=== PATIENT | male | born 1965 | race Two or more races ===

== ENCOUNTER 2016-09-17 08:27 | Emergency (ER) | payer SELFPAY ==
[~2016-09-17] VITALS: Ht 170.2 cm; Wt 91.2 kg
[~2016-09-17 08:27] MED LIST: ALPRAZOLAM1 MG ORAL
[2016-09-17 08:56] VITALS: BP 145/75
[2016-09-17] MEDS ORDERED: Ipratropium 0.02% Inh Soln 2.5ml UD HHN ONE (09:15)
[2016-09-17] MEDS ORDERED: PredniSONE 20mg tab ORAL ONE (09:15)
[2016-09-17] MEDS ORDERED: Albuterol ud Inhalation HHN ONE (09:15)
[2016-09-17] MEDS ORDERED: ALBUTEROL SULF8.5 GM INH (10:40)
[2016-09-17] MEDS ORDERED: IBUPROFEN600 MG ORAL (10:40)
[2016-09-17] MEDS ORDERED: ASPIRIN EC81 MG ORAL (10:40)
[2016-09-17] MEDS ORDERED: HYDROCHLOROTHIA25 MG ORAL (10:40)
[2016-09-17] MEDS ORDERED: ZOCOR20 M1 ORAL (10:40)
[2016-09-17] MEDS ORDERED: AMOXICILLIN500 MG ORAL (10:40)
[2016-09-17] MEDS ORDERED: PREDNISONE20 MG ORAL (10:40)
[2016-09-17 11:06] VITALS: BP 124/69
[2016-09-17 11:07] VITALS: BP 124/69
--- NOTE | 2016-09-17 12:13 | Diagnostic Imaging Report ---
Indications: Right knee pain Technique: Three views of the right knee Comparison: None Findings: No acute fractures. No dislocations. Joint spaces are preserved. No radiopaque foreign body. Normal mineralization. Impression: No acute process
--- NOTE | 2016-09-17 16:17 | Diagnostic Imaging Report ---
Indication: COUGH Technique: One view of the chest Comparison: 03/18/2011 Findings: Less optimal inspiration currently. No definite acute infiltrates, effusions, or congestion. The heart is upper limits normal in size Impression: No acute process
--- NOTE | 2016-09-18 14:19 | Emergency Room Report ---
History of Present Illness General Chief Complaint: Upper Respiratory Illness Source: Patient Present Illness HPI 50-year-old male presents to ED for evaluation. States the last 2 days he's had a cough with fever. States cough is productive. Denies chest pain. Denies history of smoking or asthma. Patient also states since last week he had a mechanical fall in the bathroom and landed on his right knee. Complaining of right knee pain. Night at 10, throbbing, nonradiating. Denies any other injuries. She bear weight. No other aggravating or relieving factors. Denies any other symptoms Allergies: Coded Allergies: No Known Allergies (Unverified , 10/07/12) Patient History Past Medical History: DM, HTN Past Surgical History: none Pertinent Family History: none Social History: Denies: alcohol use, drug use, smoking Immunizations: UTD Reviewed Nursing Documentation: PMH: Agreed, PSxH: Agreed Nursing Documentation-PMH Past Medical History: No History, Except For Hx Cardiac Problems: Yes - high cholesterol Hx Hypertension: Yes Hx Diabetes: Yes Review of Systems All Other Systems: negative except mentioned in HPI Physical Exam Vital Signs Date Time Temp Pulse Resp B/P Pulse Ox O2 Delivery O2 Flow Rate FiO2 09/17/16 08:44 99.7 97 18 148/87 98 Room Air Sp02 EP Interpretation: reviewed, normal General Appearance: no apparent distress, alert, GCS 15, non-toxic Head: normocephalic Eyes: bilateral eye PERRL, bilateral eye normal inspection ENT: normal ENT inspection Neck: normal inspection Respiratory: chest non-tender, lungs clear, normal breath sounds, speaking full sentences Cardiovascular #1: regular rate, rhythm, no edema Gastrointestinal: normal inspection Rectal: deferred Genitourinary: no CVA tenderness Musculoskeletal: tender - R knee Neurologic: alert, oriented x3, responsive, motor strength/tone normal, sensory intact, speech normal Psychiatric: normal inspection Skin: normal inspection Lymphatic: normal inspection Procedures Splinting Splinting : Consent: Verbal Pre-Made Type: JUAN wrap - R knee Pre-Proc Neuro Vasc Exam: normal Post-Proc Neuro Vasc Exam: normal Patient Tolerated: Well Complications: None Medical Decision Making Diagnostic Impression: Primary Impression: Atypical pneumonia Additional Impression: Knee contusion Qualified Codes: S80.01XA - Contusion of right knee, initial encounter ER Course Hospital Course 50-year-old male presents to ED complaining of cough, fever. also c/o R knee pain Differential diagnoses include: URI, bronchitis, asthma/COPD, pneumonia Clinical course Patient placed on stretcher. After initial history and physical I ordered nebulizer treatment, CXR, R knee Xray, pain meds CXR unremarkable R knee xray unremarkable Upon reassessment patient states cough and symptoms have improved. We will treat as a typical pneumonia Juan wrap applied to the right knee Diagnosis - atypical pneumonia, R knee contusion Stable and discharged home with prescriptions for Rx motrin, prednisone, albuterol. Instructed to followup with PMD. Return to ED if symptoms recur or worsen Chest X-Ray Diagnostic Results Chest X-Ray Diagnostic Results : Chest X-Ray Ordered: Yes # of Views/Limited/Complete: 1 View Indication: Other - cough EP Interpretation: Yes Interpretation: no consolidation, no effusion, no pneumothorax, no acute cardiopulmonary disease Impression: No acute disease Interpreting ER Provider: Electronically signed by Marjorie Frausto MD Other X-Ray Diagnostic Results Other X-Ray Diagnostic Results : X-Ray ordered: Right knee # of Views/Limited Vs Complete: 3 View Indication: Pain EP Interpretation: Yes Interpretation: no dislocation, no soft tissue swelling, no fractures Impression: No acute disease Interpreting ER Provider: Electronically signed by Marjorie Frausto MD Last Vital Signs Date Time Temp Pulse Resp B/P Pulse Ox O2 Delivery O2 Flow Rate FiO2 09/17/16 11:07 99.7 94 18 124/69 98 Room Air Status: improved Disposition: HOME, SELF-CARE Condition: Stable Scripts Albuterol Sulfate* (ALBUTEROL SULFATE MDI*) 8.5 Gm Hfa.aer.ad 2 PUFF INH Q4H Y for cough/wheezing, #1 EA 0 Refills Prov: MARJORIE FRAUSTO M.D. 09/17/16 Prednisone* (PREDNISONE*) 20 Mg Tablet 40 MG ORAL DAILY, #10 TAB Prov: MARJORIE FRAUSTO M.D. 09/17/16 Amoxicillin* (AMOXIL*) 500 Mg Capsule 500 MG ORAL THREE TIMES A DAY, #21 CAP Prov: MARJORIE FRAUSTO M.D. 09/17/16 Ibuprofen* (MOTRIN*) 600 Mg Tablet 600 MG ORAL Q8H Y for For Pain, #30 TAB 0 Refills Prov: MARJORIE FRAUSTO M.D. 09/17/16 Hydrochlorothiazide* (HYDROCHLOROTHIAZIDE*) 25 Mg Tablet 25 MG ORAL DAILY, #30 TAB Prov: MARJORIE FRAUSTO M.D. 09/17/16 Simvastatin (ZOCOR) 20 Mg Tablet 20 MG ORAL BEDTIME, #30 TAB Prov: MARJORIE FRAUSTO M.D. 09/17/16 Aspirin Ec* (ASPIRIN EC*) 81 Mg Tablet. 81 MG ORAL DAILY, #30 TAB Prov: MARJORIE FRAUSTO M.D. 09/17/16 Patient Instructions: Community-Acquired Pneumonia, Adult, [facility] MARJORIE FRAUSTO M.D. Sep 18, 2016 14:19
== END 2016-09-17 11:23 | disposition home or self-care (01) ==
LOC: EMR 08:56
DX: J18.9 Pneumonia, unspecified organism (principal); S80.01XA Contusion of right knee, initial encounter; W19.XXXA Unspecified fall, initial encounter; Y92.012 Bathroom of single-family (private) house as the place of occurrence of the external cause; I10 Essential (primary) hypertension; E11.9 Type 2 diabetes mellitus without complications
CPT/HCPCS: 71010; 94640; 99284

== ENCOUNTER 2019-10-24 08:04 | Emergency (ER) | payer OTHER ==
[~2019-10-24] VITALS: Ht 170.2 cm; Wt 83.5 kg
[~2019-10-24 08:04] MED LIST changes: +ALBUTEROL SULF8.5 GM INH; +AMITRIPTYLINE H25 MG ORAL; +AMLODIPINE BESYL5 MG ORAL; +AMOXICILLIN500 MG ORAL; +ASPIRIN EC325 MG ORAL; +ASPIRIN EC81 MG ORAL; +ATORVASTATIN CA20 MG ORAL; +CIPROFLOXACIN500 M2 ORAL; +DAILY VITE1 EACH ORAL; +FLOMAX0.4 MG ORAL; +HYDROCHLOROTHIA25 MG ORAL; +IBUPROFEN600 MG ORAL; +KEFLEX250 MG ORAL; +LISINOPRIL40 MG ORAL; +MELATONIN 3 MG1 EAC1 PO; +METFORMIN HCL500 M1 ORAL; +MINIPRESS1 MG PO; +PRAZOSIN HCL2 MG PO; +PREDNISONE20 MG ORAL; +PROAIR HFA8.5 GM INH; +PROMETHAZINE-C118 M1 ORAL; +PROPRANOLOL HCL10 MG ORAL; +PROPRANOLOL HCL40 MG ORAL; +SEROQUEL100 MG ORAL; +TERAZOSIN HCL5 MG PO; +TYLENOL EXTRA500 MG ORAL; +ZOCOR20 M1 ORAL
[2019-10-24 08:37] VITALS: BP 114/73
--- NOTE | 2019-10-24 08:58 | Emergency Room Report ---
History of Present Illness General Chief Complaint: Male Urogenital Problems Source: Patient Present Illness HPI Disclaimer: Please note that this report is being documented using [employer] technology. This can lead to erroneous entry secondary to incorrect interpretation by the dictating instrument. HPI: 53-year-old male history of hypertension and BPH presented for Mcmillan catheter dysfunction. Patient had a Mcmillan catheter placed 2 weeks ago here for urinary retention. He states it stopped draining last night. Complained of mild suprapubic discomfort. Denies any fevers nausea or vomiting. He completed a course of p.o. antibiotics. He does have follow-up with his primary doctor in 2 days. 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 Nursing Documentation-PMH Past Medical History: No History, Except For Hx Hypertension: Yes Hx Asthma: Yes Hx Diabetes: Yes Review of Systems All Other Systems: negative except mentioned in HPI Physical Exam Vital Signs Date Time Temp Pulse Resp B/P (MAP) Pulse Ox O2 Delivery O2 Flow Rate FiO2 10/24/19 08:12 97.2 79 17 114/73 (87) 100 Room Air Sp02 EP Interpretation: reviewed, normal General Appearance: well appearing, no apparent distress Head: normocephalic, atraumatic Eyes: bilateral eye PERRL, bilateral eye EOMI ENT: hearing grossly normal, moist mucus membranes Neck: full range of motion, supple Respiratory: lungs clear, normal breath sounds, no rhonchi, no respiratory distress, no retraction, no wheezing Cardiovascular #1: normal peripheral pulses, regular rate, rhythm, no murmur Gastrointestinal: non tender, soft, non-distended, no guarding Neurologic: alert, oriented x3, no focal defects Skin: normal color, warm/dry Medical Decision Making Diagnostic Impression: Primary Impression: UTI (urinary tract infection) Additional Impression: Encounter for Mcmillan catheter removal ER Course MDM: Differential included but not limited to Mcmillan catheter obstruction, did consider UTI, patient does not appear septic Clinical course-patient plan to follow-up with her primary doctor in 2 days for Mcmillan catheter removal and voiding trial however currently his Mcmillan catheter appears obstructed. Will remove I discussed placing a new Mcmillan catheter versus a voiding trial now and he wished to trial a voiding trial. So voiding trial was successful in the ER. Urinalysis was sent and still showed 30-50 WBCs with 3+ leukocyte Estrace I will place patient back on Macrobid p.o. He does have follow-up with his PMD in 2 days. Otherwise nontoxic no acute distress stable for discharge. Labs - Laboratory Tests Test 10/24/19 09:27 Urine Color Pale yellow Urine Appearance Slightly cloudy Urine pH 5 (4.5-8.0) Urine Specific [place] 1.015 (1.005-1.035) Urine Protein 2+ (NEGATIVE) H Urine Glucose (UA) Negative (NEGATIVE) Urine Ketones Negative (NEGATIVE) Urine Blood 5+ (NEGATIVE) H Urine Nitrite Positive (NEGATIVE) H Urine Bilirubin Negative (NEGATIVE) Urine Urobilinogen Normal MG/DL (0.0-1.0) Urine Leukocyte Esterase 3+ (NEGATIVE) H Urine RBC 5-10 /HPF (0 - 0) H Urine WBC 20-30 /HPF (0 - 0) H Urine Squamous Epithelial Cells Few /LPF (NONE/OCC) Urine Bacteria Many /HPF (NONE) H Last Vital Signs Date Time Temp Pulse Resp B/P (MAP) Pulse Ox O2 Delivery O2 Flow Rate FiO2 10/24/19 08:37 97.2 17 114/73 100 Room Air 10/24/19 08:12 79 Disposition: HOME, SELF-CARE Condition: Improved Scripts Nitrofurantoin Monohyd/M-Cryst* (MACROBID 100 MG*) 100 Mg Capsule 100 MG ORAL EVERY 12 HOURS, #14 CAP Prov: Brendon Ruby M.D. 10/24/19 Referrals: [facility],REFERRING (PCP) Brendon Ruby M.D. Oct 24, 2019 08:58
[2019-10-24 10:26] LABS: APPEARANCE,URINE SLIGHTLY CLOUDY; BILIRUBIN, URINE NEGATIVE (NEGATIVE); COLOR,URINE PALE YELLOW; GLUCOSE, URINE (UA) NEGATIVE (NEGATIVE); KETONES,URINE NEGATIVE (NEGATIVE); LEUKOCYTE ESTERASE ,URINE 3+ (NEGATIVE); NITRITE,URINE POSITIVE (NEGATIVE); PH,URINE 5 (4.5-8.0); PROTEIN,URINE 2+ (NEGATIVE); UROBILINOGEN,URINE NORMAL MG/DL (0.0-1.0)
[2019-10-24] MEDS ORDERED: NITROFURANTOIN100 M2 ORAL (10:46)
[2019-10-24 10:55] VITALS: BP 116/76
== END 2019-10-24 10:55 | disposition home or self-care (01) ==
LOC: EMR 08:29
DX: Z46.6 Encounter for fitting and adjustment of urinary device (principal); N39.0 Urinary tract infection, site not specified; E11.9 Type 2 diabetes mellitus without complications; I10 Essential (primary) hypertension
CPT/HCPCS: 81003; 87086; Z7502; 99283

== ENCOUNTER 2019-11-24 18:29 | Emergency (ER) | payer OTHER ==
[~2019-11-24] VITALS: Ht 170.2 cm; Wt 81.6 kg
[~2019-11-24 18:29] MED LIST changes: +NITROFURANTOIN100 M2 ORAL
[2019-11-24 19:00] VITALS: BP 138/82
[2019-11-24] MEDS ORDERED: Lidocaine 2% Visc 15ml soln ORAL ONE (19:00)
[2019-11-24] MEDS ORDERED: Mylanta II UD 30ml ORAL ONE (19:00)
--- NOTE | 2019-11-24 19:00 | NUR ---
ED Nurse Note: Pt walked into ED for epigastric pain 8/10 for 2 days. Pt is alert and orientedx4, ambulatory. Pt set up on monitor. Pt has been seen by ERMAudie. Pt has no nausea or vomiting.
--- NOTE | 2019-11-24 19:10 | Emergency Room Report ---
History of Present Illness General Chief Complaint: Abdominal Pain Source: Medical Record Present Illness HPI 53 YO male presents to the emergency department complaining of 10 out of 10 severity intermittent burning abdominal and throat pain x3 days which occurs only after eating or drinking. Patient reports moderate daily use of Celecoxib and IBU. He denies caffeine intake or smoking. He denies abdominal tenderness. He denies blood in the stool or black tarry stools. He reports that his pain is primarily on the right side and it radiates upward from the epigastric region. He denies shortness of breath, palpitations, dizziness or diaphoresis. He denies fevers, chills, nausea, vomiting, constipation or diarrhea. He reports hx of anxiety, BPH, asthma, DM, and HTN.. He denies recent travel or ill contacts or household members with similar symptoms. 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 Patient History Past Medical History: see triage record, psych hx - anxiety, other - chronic pain Past Surgical History: none Pertinent Family History: none Reviewed Nursing Documentation: PMH: Agreed; PSxH: Agreed Nursing Documentation-PMH Past Medical History: No History, Except For Hx Hypertension: Yes Hx Asthma: Yes Hx Diabetes: Yes Review of Systems All Other Systems: negative except mentioned in HPI Physical Exam Vital Signs Date Time Temp Pulse Resp B/P (MAP) Pulse Ox O2 Delivery O2 Flow Rate FiO2 11/24/19 18:40 98.1 72 18 133/84 (100) 96 Room Air Sp02 EP Interpretation: reviewed, normal General Appearance: no apparent distress, alert, GCS 15, non-toxic Head: normocephalic, atraumatic Eyes: bilateral eye normal inspection, bilateral eye PERRL ENT: hearing grossly normal, normal pharynx, normal voice Neck: full range of motion Respiratory: chest non-tender, lungs clear, normal breath sounds, no respiratory distress, no accessory muscle use, no wheezing, speaking full sentences Cardiovascular #1: regular rate, rhythm, no edema Gastrointestinal: normal bowel sounds, non tender, soft, non-distended, no guarding Rectal: deferred Musculoskeletal: back normal, normal range of motion, gait/station normal, non- tender Neurologic: alert, motor strength/tone normal, oriented x3, sensory intact, responsive, speech normal Psychiatric: judgement/insight normal Skin: normal color Medical Decision Making PA Attestation Dr. Page is my supervising Physician whom patient management has been discussed with. Diagnostic Impression: Primary Impression: Gastritis due to nonsteroidal anti-inflammatory drug (NSAID) Additional Impression: Acid reflux Qualified Codes: K21.00 - Gastro-esophageal reflux disease with esophagitis, without bleeding ER Course 53 YO male presents to the emergency department complaining of 10 out of 10 severity intermittent burning abdominal and throat pain x3 days which occurs only after eating or drinking. Patient reports moderate daily use of Celecoxib and IBU. He denies caffeine intake or smoking. He denies abdominal tenderness. He denies blood in the stool or black tarry stools. He reports that his pain is primarily on the right side and it radiates upward from the epigastric region. He denies shortness of breath, palpitations, dizziness or diaphoresis. He denies fevers, chills, nausea, vomiting, constipation or diarrhea. He reports hx of anxiety, BPH, asthma, DM, and HTN.. He denies recent travel or ill contacts or household members with similar symptoms. Ddx considered but are not limited to Diverticulitis, acute appendicitis, diarrhea,UC, PUD, GE, pancreatitis, gallstone, or cardiac etiology just to name a few. Vital signs: are WNL, pt. is afebrile H&PE are most consistent with NSAID induced Gastritis. ORDERS: -CBC, CMP, lipase: WNL -EKG: unremarkable - ED INTERVENTIONS: - Pepcid PO 20mg -Mylanta PO -Viscous Lidocaine 2% PO Reviewed normal laboratory values with patient. Discussed with patient that I believe his symptoms are secondary to excessive use of NSAIDs. Patient reports he is feeling much better after above interventions. -I do not identify an emergent condition at this time. With current presentation, pt. is stable for close outpatient follow up and conservative treatment. D/w pt. to return promptly to ED with worsening or new symptoms.- Pt. verbalizes' understanding and agreement with proposed treatment plan. DISCHARGE: At this time pt. is stable for d/c to home. Will provide printed patient care instructions, and any necessary prescriptions. Care plan and follow up instructions have been discussed with the patient prior to discharge. Labs Test 11/24/19 19:00 White Blood Count 10.2 K/UL (4.8-10.8) Red Blood Count 4.52 M/UL (4.70-6.10) Hemoglobin 14.5 G/DL (14.2-18.0) Hematocrit 42.0 % (42.0-52.0) Mean Corpuscular Volume 93 FL (80-99) Mean Corpuscular Hemoglobin 32.0 PG (27.0-31.0) Mean Corpuscular Hemoglobin Concent 34.5 G/DL (32.0-36.0) Red Cell Distribution Width 12.8 % (11.6-14.8) Platelet Count 188 K/UL (150-450) Mean Platelet Volume 9.1 FL (6.5-10.1) Neutrophils (%) (Auto) 66.8 % (45.0-75.0) Lymphocytes (%) (Auto) 25.1 % (20.0-45.0) Monocytes (%) (Auto) 6.6 % (1.0-10.0) Eosinophils (%) (Auto) 0.9 % (0.0-3.0) Basophils (%) (Auto) 0.6 % (0.0-2.0) Sodium Level 136 MMOL/L (136-145) Potassium Level 4.0 MMOL/L (3.5-5.1) Chloride Level 104 MMOL/L (98-107) Carbon Dioxide Level 23 MMOL/L (21-32) Blood Urea Nitrogen 14 mg/dL (7-18) Creatinine 1.2 MG/DL (0.55-1.30) Estimat Glomerular Filtration Rate > 60 mL/min (>60) Glucose Level 114 MG/DL (74-106) Calcium Level 9.0 MG/DL (8.5-10.1) Total Bilirubin 0.4 MG/DL (0.2-1.0) Aspartate Amino Transf (AST/SGOT) 23 U/L (15-37) Alanine Aminotransferase (ALT/SGPT) 32 U/L (12-78) Alkaline Phosphatase 94 U/L (46-116) Total Protein 7.2 G/DL (6.4-8.2) Albumin 4.2 G/DL (3.4-5.0) Globulin 3.0 g/dL Albumin/Globulin Ratio 1.4 (1.0-2.7) Lipase 160 U/L (73-393) EKG Diagnostic Results Rate: normal - 67 BPM Rhythm: NSR ST Segments: no acute changes ASA given to the pt in ED: No PA Scribe Text This Interpretation was scribed by DENISE Evans. Last Vital Signs Date Time Temp Pulse Resp B/P (MAP) Pulse Ox O2 Delivery O2 Flow Rate FiO2 11/24/19 18:40 98.1 72 18 133/84 (100) 96 Room Air Status: improved Disposition: HOME, SELF-CARE Condition: Stable Patient Instructions: Food Choices for Gastroesophageal Reflux Disease, Adult, Gastritis, Adult, Gastroesophageal Reflux Disease, Adult Additional Instructions: Discontinue excessive use of ibuprofen and celecoxib Take medications as directed. Follow up with a Primary Care Provider in 3-5 days, even if your symptoms have resolved. --Please review list of primary care clinics, if you do not already have a primary care provider Return sooner to ED if new symptoms occur, or current symptoms become worse. - Please note that this Emergency Department Report was dictated using [place] [employer]traffic expert technology software, occasionally this can lead to erroneous entry secondary to interpretation by the dictation equipment. Chelle Evans Nov 24, 2019 19:10
--- NOTE | 2019-11-24 19:30 | NUR ---
ED Nurse Note: received patient from sonal dejesus. patient resting in bed with no acute distress. vitals stable to baseline. discussed plan of care with patient; states willingness to continue with care.
[2019-11-24 19:32] LABS: BASOPHILS % (AUTO) 0.6 % (0.0-2.0); EOSINOPHILS % (AUTO) 0.9 % (0.0-3.0); HEMOGLOBIN 14.5 G/DL (14.2-18.0); LYMPHOCYTES % (AUTO) 25.1 % (20.0-45.0); MEAN CORPUSCULAR VOLUME 93 FL (80-99); MONOCYTES % (AUTO) 6.6 % (1.0-10.0); NEUTROPHILS % (AUTO) 66.8 % (45.0-75.0); PLATELET COUNT 188 K/UL (150-450); RED BLOOD COUNT 4.52 M/UL (4.70-6.10); RED CELL DISTRIBUTION WIDTH 12.8 % (11.6-14.8); WHITE BLOOD COUNT 10.2 K/UL (4.8-10.8)
[2019-11-24 19:39] LABS: ALANINE AMINOTRANSFERASE 32 U/L (12-78); ALBUMIN 4.2 G/DL (3.4-5.0); ALBUMIN/GLOBULIN RATIO 1.4 (1.0-2.7); ALKALINE PHOSPHATASE 94 U/L (46-116); ASPARTATE AMINO TRANSFERASE 23 U/L (15-37); BILIRUBIN,TOTAL 0.4 MG/DL (0.2-1.0); BLOOD UREA NITROGEN 14 mg/dL (7-18); CARBON DIOXIDE 23 MMOL/L (21-32); CHLORIDE 104 MMOL/L (98-107); CREATININE 1.2 MG/DL (0.55-1.30); SODIUM 136 MMOL/L (136-145)
[2019-11-24] MEDS ORDERED: FAMOTIDINE20 MG ORAL (20:03)
[2019-11-24] MEDS ORDERED: LIDOCAINE VISC100 ML ORAL (20:03)
[2019-11-24 20:18] VITALS: BP 129/81
--- NOTE | 2019-11-24 20:18 | NUR ---
ER DISCHARGE NOTE: Patient is cleared to be discharged per ERMD, pt is aox4, on room air, with stable vital signs. pt was given dc and prescription instructions, pt was able to verbalize understanding, pt id band and iv site removed without complications. pt is able to ambulate with steady gait. pt took all belongings.
== END 2019-11-24 20:18 | disposition home or self-care (01) ==
LOC: EMR 18:55
DX: K29.70 Gastritis, unspecified, without bleeding (principal); T39.395A Adverse effect of other nonsteroidal anti-inflammatory drugs [NSAID], initial encounter; Y92.9 Unspecified place or not applicable; K21.00 Gastro-esophageal reflux disease with esophagitis, without bleeding; E11.9 Type 2 diabetes mellitus without complications; I10 Essential (primary) hypertension; F41.9 Anxiety disorder, unspecified
CPT/HCPCS: 36415; 80053; 83690; 85025; Z7502; 99283

== ENCOUNTER 2019-12-26 15:09 | Inpatient (IN) | payer OTHER ==
[~2019-12-26] VITALS: Ht 170.2 cm; Wt 77.1 kg
[~2019-12-26 15:09] MED LIST changes: +FAMOTIDINE20 MG ORAL; +LIDOCAINE VISC100 ML ORAL
--- NOTE | 2019-12-26 15:37 | Emergency Room Report ---
History of Present Illness General Chief Complaint: Vomiting Source: Patient Present Illness HPI Patient is a 54-year-old male past medical history of anxiety, diabetes and hypertension who presents to the ER complaining of abdominal pain, nausea and vomiting for 2 days. Patient complains of epigastric pain. He denies any fever or chills. He denies any bilious or bloody vomitus. He denies any chest pain o r shortness of breath. He denies any dysuria or hematuria. He denies any diarrhea. She denies any sick contacts and states that he lives alone. 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: No Patient History Social History: Denies: smoking, alcohol use, drug use Reviewed Nursing Documentation: PMH: Agreed; PSxH: Agreed Nursing Documentation-PMH Hx Hypertension: Yes Hx Asthma: Yes Hx Diabetes: Yes Review of Systems All Other Systems: negative except mentioned in HPI Physical Exam Vital Signs Date Time Temp Pulse Resp B/P (MAP) Pulse Ox O2 Delivery O2 Flow Rate FiO2 12/26/19 15:17 98.2 64 20 143/79 (100) 96 Room Air Sp02 EP Interpretation: reviewed, normal General Appearance: no apparent distress, alert, GCS 15, non-toxic Head: normocephalic, atraumatic Eyes: bilateral eye normal inspection, bilateral eye PERRL Neck: full range of motion, supple/symm/no masses Respiratory: chest non-tender, lungs clear, normal breath sounds, speaking full sentences Cardiovascular #1: regular rate, rhythm, no edema Gastrointestinal: other - Mild epigastric tenderness to palpation with no guarding or rebound Rectal: deferred Musculoskeletal: normal range of motion, no calf tenderness, no lower extremity edema Neurologic: analysis mgr III-XII nml as tested, oriented x3 Psychiatric: no suicidal/homicidal ideation Skin: no rash Lymphatic: no adenopathy Medical Decision Making Diagnostic Impression: Primary Impression: Pyelonephritis Additional Impression: Nausea & vomiting ER Course Patient has been pancultured. Patient's UA is positive. Patient started on Levaquin. Patient given IV fluids. Patient's lactate is normal. Patient CT demonstrates bilateral perinephric stranding. Patient will be admitted for further treatment and evaluation. Laboratory Tests Test 12/26/19 15:30 12/26/19 17:20 White Blood Count 10.5 K/UL (4.8-10.8) Red Blood Count 4.86 M/UL (4.70-6.10) Hemoglobin 15.4 G/DL (14.2-18.0) Hematocrit 44.8 % (42.0-52.0) Mean Corpuscular Volume 92 FL (80-99) Mean Corpuscular Hemoglobin 31.7 PG (27.0-31.0) H Mean Corpuscular Hemoglobin Concent 34.3 G/DL (32.0-36.0) Red Cell Distribution Width 12.3 % (11.6-14.8) Platelet Count 193 K/UL (150-450) Mean Platelet Volume 10.3 FL (6.5-10.1) H Neutrophils (%) (Auto) 79.7 % (45.0-75.0) H Lymphocytes (%) (Auto) 15.5 % (20.0-45.0) L Monocytes (%) (Auto) 4.3 % (1.0-10.0) Eosinophils (%) (Auto) 0.1 % (0.0-3.0) Basophils (%) (Auto) 0.4 % (0.0-2.0) Prothrombin Time 11.5 SEC (9.30-11.50) Prothrombin Time INR 1.0 (0.9-1.1) Activated Partial Thromboplast Time 27 SEC (23-33) Urine Color Yellow Urine Appearance Slightly cloudy Urine pH 6 (4.5-8.0) Urine Specific [place] 1.015 (1.005-1.035) Urine Protein 2+ (NEGATIVE) H Urine Glucose (UA) Negative (NEGATIVE) Urine Ketones 3+ (NEGATIVE) H Urine Blood Negative (NEGATIVE) Urine Nitrite Negative (NEGATIVE) Urine Bilirubin Negative (NEGATIVE) Urine Urobilinogen 1 MG/DL (0.0-1.0) H Urine Leukocyte Esterase 1+ (NEGATIVE) H Urine RBC 0-2 /HPF (0 - 0) H Urine WBC 10-15 /HPF (0 - 0) H Urine Squamous Epithelial Cells Occasional /LPF Urine Bacteria Many /HPF (NONE) H Urine Mucus Few /LPF (NONE/OCC) H Sodium Level 134 MMOL/L (136-145) L Potassium Level 4.3 MMOL/L (3.5-5.1) Chloride Level 98 MMOL/L (98-107) Carbon Dioxide Level 29 MMOL/L (21-32) Anion Gap 7 mmol/L (5-15) Blood Urea Nitrogen 11 mg/dL (7-18) Creatinine 0.9 MG/DL (0.55-1.30) Estimated Glomerular Filtration Rate > 60 mL/min (>60) Glucose Level 160 MG/DL (74-106) H Calcium Level 8.8 MG/DL (8.5-10.1) Magnesium Level 1.8 MG/DL (1.8-2.4) Total Bilirubin 0.5 MG/DL (0.2-1.0) Aspartate Amino Transferase (AST) 18 U/L (15-37) Alanine Aminotransferase (ALT) 32 U/L (12-78) Alkaline Phosphatase 87 U/L (46-116) Troponin I 0.000 ng/mL (0.000-0.056) Total Protein 7.9 G/DL (6.4-8.2) Albumin 4.2 G/DL (3.4-5.0) Globulin 3.7 g/dL Albumin/Globulin Ratio 1.1 (1.0-2.7) Lipase 167 U/L (73-393) Urine Opiates Screen Negative (NEGATIVE) Urine Barbiturates Screen Negative (NEGATIVE) Phencyclidine (PCP) Screen Negative (NEGATIVE) Urine Amphetamines Screen Negative (NEGATIVE) Urine Benzodiazepines Screen Negative (NEGATIVE) Urine Cocaine Screen Negative (NEGATIVE) Urine Marijuana (THC) Screen Negative (NEGATIVE) Lactic Acid Level 0.80 mmol/L (0.4-2.0) EKG Diagnostic Results Troponin ordered: Yes When was troponin ordered?: Dec 26, 2019 EKG Time: 16:18 EP Interpretation: Jocy Ochoa MD Rate: bradycardiac - 53 bpm Rhythm: other - Sinus bradycardia ST Segments: no acute changes ASA given to the pt in ED: No Rhythm Strip Diag. Results Rhythm Strip Time: 16:28 EP Interpretation: yes - Jocy Ochoa MD Rate: 55 bpm Rhythm: no PVC's, no ectopy, other - Sinus bradycardia Chest X-Ray Diagnostic Results Chest X-Ray Diagnostic Results : Chest X-Ray Ordered: Yes # of Views/Limited/Complete: 1 View Indication: Other - Abdominal pain EP Interpretation: Yes Interpretation: no consolidation, no effusion, no pneumothorax, no acute cardiopulmonary disease Impression: No acute disease Electronically Signed by: Jocy Ochoa MD Last Vital Signs Date Time Temp Pulse Resp B/P (MAP) Pulse Ox O2 Delivery O2 Flow Rate FiO2 12/26/19 15:17 98.2 64 20 143/79 (100) 96 Room Air Disposition: ADMITTED INPATIENT - MS Condition: Critical Physician Consult: Dr. Angulo at 1830 Additional Instructions: The patient was provided with discharge instructions, notified to follow-up with a primary care doctor and or specialist in the next 24-48 hours, and to return to the ED if they have worsening of their symptoms. Please note that this report is being documented using [employer] technology. This can lead to erroneous entry secondary to incorrect interpretation by the dictating instrument. Jocy Ochoa M.D. Dec 26, 2019 15:37
[2019-12-26 15:45] VITALS: BP 143/79
[2019-12-26] MEDS ORDERED: fentaNYL 100 mcg/2 mL IV ONE ×2 (15:45→17:15)
[2019-12-26] MEDS ORDERED: Pantoprazole Inj IVP ONE (15:45)
[2019-12-26 15:49] LABS: BILIRUBIN, URINE NEGATIVE (NEGATIVE); GLUCOSE, URINE (UA) NEGATIVE (NEGATIVE); KETONES,URINE 3+ (NEGATIVE); LEUKOCYTE ESTERASE ,URINE 1+ (NEGATIVE); NITRITE,URINE NEGATIVE (NEGATIVE); PH,URINE 6 (4.5-8.0); PROTEIN,URINE 2+ (NEGATIVE); UROBILINOGEN,URINE 1 MG/DL (0.0-1.0)
--- NOTE | 2019-12-26 15:50 | NUR ---
ED Nurse Note: Pt ambulated to ED from home d/t epigastric pain accompanied by vomiting for 2 days. Pt is AOx4, calm and cooperative to care, VSS, breathing even and unlabored, afebrile on triage. Placed on bed and gown; will continue to monitor.
[2019-12-26 15:51] LABS: BASOPHILS % (AUTO) 0.4 % (0.0-2.0); EOSINOPHILS % (AUTO) 0.1 % (0.0-3.0); HEMATOCRIT 44.8 % (42.0-52.0); HEMOGLOBIN 15.4 G/DL (14.2-18.0); LYMPHOCYTES % (AUTO) 15.5 % (20.0-45.0); MEAN CORPUSCULAR VOLUME 92 FL (80-99); MONOCYTES % (AUTO) 4.3 % (1.0-10.0); NEUTROPHILS % (AUTO) 79.7 % (45.0-75.0); PLATELET COUNT 193 K/UL (150-450); RED BLOOD COUNT 4.86 M/UL (4.70-6.10); RED CELL DISTRIBUTION WIDTH 12.3 % (11.6-14.8); WHITE BLOOD COUNT 10.5 K/UL (4.8-10.8)
[2019-12-26 15:52] LABS: APPEARANCE,URINE SLIGHTLY CLOUDY; COLOR,URINE YELLOW
--- NOTE | 2019-12-26 16:00 | NUR ---
ED Nurse Note: Pt was taken to CT.
[2019-12-26 16:03] LABS: ANION GAP 7 mmol/L (5-15); BLOOD UREA NITROGEN 11 mg/dL (7-18); CALCIUM 8.8 MG/DL (8.5-10.1); CARBON DIOXIDE 29 MMOL/L (21-32); CHLORIDE 98 MMOL/L (98-107); CREATININE 0.9 MG/DL (0.55-1.30); POTASSIUM 4.3 MMOL/L (3.5-5.1); SODIUM 134 MMOL/L (136-145)
[2019-12-26 16:07] LABS: ALANINE AMINOTRANSFERASE 32 U/L (12-78); ALBUMIN 4.2 G/DL (3.4-5.0); ALBUMIN/GLOBULIN RATIO 1.1 (1.0-2.7); ALKALINE PHOSPHATASE 87 U/L (46-116); ASPARTATE AMINO TRANSFERASE 18 U/L (15-37); BILIRUBIN,TOTAL 0.5 MG/DL (0.2-1.0)
--- NOTE | 2019-12-26 16:10 | NUR ---
ED Nurse Note: Pt returned from CT
--- NOTE | 2019-12-26 17:24 | NUR ---
ED Nurse Note: lactic and blood cultures collected, sent to labs.
[2019-12-26 19:51] VITALS: BP 133/79
--- NOTE | 2019-12-26 19:51 | NUR ---
ED Nurse Note: Belongings list completed
--- NOTE | 2019-12-26 20:43 | Diagnostic Imaging Report ---
Indication: Epigastric pain, nausea, vomiting Technique: Spiral acquisitions obtained through the abdomen and pelvis. No oral contrast utilized, per emergency room physician request No IV contrast utilized, per referring physician request.. Multiplanar reconstructions were generated. Total dose length product 423 mGycm. CTDIvol(s) 6 mGy. Dose reduction achieved using automated exposure control Comparison: None Findings: Lack of enteric contrast limits assessment of the GI tract. What is probably a normal appendix is visualized. No small bowel distention. There are a few small colonic diverticula. No evidence of acute diverticulitis. No free or loculated intraperitoneal gas or fluid is evident. The distal esophagus is unremarkable. The stomach is mildly distended with ingested material. There are bilateral inguinal hernias that contain only fat Lack of IV contrast limits assessment of the solid organs. The liver, gallbladder, bile ducts, pancreas, spleen, adrenals are unremarkable. No intrinsic parenchymal renal abnormality demonstrated. There is bilateral perinephric fat stranding. No renal or ureteral calculi, hydronephrosis, or hydroureter. No pelvic mass or adenopathy. The included lung bases demonstrate posterior dependent atelectatic changes. The bones are unremarkable. Impression: Limited assessment of the GI tract, due to lack of enteric contrast administration Bilateral perinephric fat stranding. This is a nonspecific finding, can be seen in acute inflammation but could also be chronic No definite acute abnormality otherwise Colonic diverticulosis. No evidence of diverticulitis Incidental findings as noted The CT scanner at [facility] is accredited by the [employer] and the scans are performed using protocols designed to limit radiation exposure to as low as reasonably achievable to attain images of sufficient resolution adequate for diagnostic evaluation.
--- NOTE | 2019-12-26 20:44 | Diagnostic Imaging Report ---
Indication: Abdominal pain Technique: One view of the chest Comparison: 09/17/2016 Findings: Lungs and pleural spaces are clear. Heart size is normal. No significant change Impression: No acute process
[2019-12-26] MEDS ORDERED: Milk of Magnesia 30ml Ud ORAL PRN (21:00)
[2019-12-26] MEDS ORDERED: HYDROmorphone 1mg/ml Carpuject IVP PRN (21:00)
[2019-12-26] MEDS ORDERED: HYDROcodone/Acetamin 7.5/325 tab ORAL PRN (21:00)
[2019-12-26] MEDS ORDERED: Zolpidem 5mg tab ORAL PRN (21:00)
[2019-12-26] MEDS ORDERED: Albuterol 90mcg Inhaler 8gm INH PRN (21:15)
[2019-12-26] MEDS ORDERED: Albuterol ud Inhalation HHN PRN (21:16)
--- NOTE | 2019-12-26 21:36 | NUR ---
Nurse Note: Report given to KATIE Murillo for continutiy of care.
--- NOTE | 2019-12-26 21:36 | NUR ---
NURSE NOTES: Telephone report received from KATIE Ogden (ED). Pt will be transported soon.
--- NOTE | 2019-12-26 21:38 | NUR ---
TRANSFER TO FLOOR: Patient transferred to med surg as ordered, per ERMD. Report given to KATIE Murillo.
--- NOTE | 2019-12-26 21:40 | NUR ---
NURSE NOTES: Received pt via gurney from ED with transporter. Pt ambulatory, a&ox4, in room air. No s/s of acute distress & c/o mild pain as of now. Per pt, pain has gone down. Skin assessment done & skin intact. VSS. IV site intact & S/L'd. Oriented to hospital facility & room. Belongings checked & accounted for. Pt wants to keep valuables with him (pagan and credit card). Admission orders already entered by Dr. Angulo. Plan of care discussed.
[2019-12-26 21:56] VITALS: BP 136/76
[2019-12-26] MEDS: NovoLOG Insulin Flexpen SUBQ SCH (22:00)
[2019-12-26] MEDS: Heparin 5000 units/ml inj SUBQ SCH (22:05)
[2019-12-26] MEDS: NS w/KCl 20mEq 1000ml 1,000 ML IV SCH (22:12)
[2019-12-26] MEDS: Cefepime HCl 1 GM in D5W 55 ML IVPB SCH (22:12)
[2019-12-26 23:13] VITALS: BP 134/75
--- NOTE | 2019-12-27 01:11 | NUR ---
NURSE NOTES: Pt asleep. In no acute distress. Breathing unlabored.
[2019-12-27 03:51] VITALS: BP 102/63
[2019-12-27] MEDS: NovoLOG Insulin Flexpen SUBQ SCH ×4 (05:14→21:00)
[2019-12-27] MEDS: NS w/KCl 20mEq 1000ml 1,000 ML IV SCH ×2 (06:09→20:50)
[2019-12-27 06:43] LABS: BASOPHILS % (AUTO) 0.5 % (0.0-2.0); EOSINOPHILS % (AUTO) 0.5 % (0.0-3.0); HEMATOCRIT 43.5 % (42.0-52.0); HEMOGLOBIN 14.3 G/DL (14.2-18.0); LYMPHOCYTES % (AUTO) 31.4 % (20.0-45.0); MEAN CORPUSCULAR VOLUME 96 FL (80-99); MONOCYTES % (AUTO) 9.2 % (1.0-10.0); NEUTROPHILS % (AUTO) 58.4 % (45.0-75.0); PLATELET COUNT 179 K/UL (150-450); RED BLOOD COUNT 4.53 M/UL (4.70-6.10); RED CELL DISTRIBUTION WIDTH 12.5 % (11.6-14.8); WHITE BLOOD COUNT 8.5 K/UL (4.8-10.8)
--- NOTE | 2019-12-27 06:55 | NUR ---
NURSE HAND-OFF: Important Events on Shift: new admit Patient Status: stable Diet: ccho (m) Pending Orders: none Pending Results/Labs:none Pending MD notification:none Latest Vital Signs: Temperature 98.2 , Pulse 61 , B/P 102 /63 , Respiratory Rate 16 , O2 SAT 97 , Room Air, O2 Flow Rate . Vital Sign Comment: Latest Murry Fall Score: 35 Fall Risk: Medium Risk Safety Measures: Call light Within Reach, Bed Alarm , Side Rails Side Rails x2, Bed position Low and Locked. Fall Precautions: Patient Fall Education Report given to . Addendum: 12/27/19 at 0723 by Lidia Green RN Report given to KATIE Pritchard.
[2019-12-27 07:00] LABS: ANION GAP 4 mmol/L (5-15); BLOOD UREA NITROGEN 8 mg/dL (7-18); CALCIUM 8.5 MG/DL (8.5-10.1); CARBON DIOXIDE 31 MMOL/L (21-32); CHLORIDE 105 MMOL/L (98-107); CREATININE 0.9 MG/DL (0.55-1.30); POTASSIUM 3.8 MMOL/L (3.5-5.1); SODIUM 140 MMOL/L (136-145)
--- NOTE | 2019-12-27 07:36 | NUR ---
NURSE NOTES: Patient is in bed asleep. Stable. Breathing is even and unlabored. No visible signs of distress noted, no facial grimacing or visible discomfort noted. Patient is in bed in locked and lowest position with call light within reach. All safety measures provided. Will continue to monitor.
[2019-12-27 08:00] VITALS: BP 130/76
[2019-12-27] MEDS: Cefepime HCl 1 GM in D5W 55 ML IVPB SCH ×2 (08:30→20:50)
[2019-12-27] MEDS: Lisinopril 20mg tab ORAL SCH (08:31)
[2019-12-27] MEDS: Heparin 5000 units/ml inj SUBQ SCH ×2 (08:36→20:55)
[2019-12-27] MEDS ORDERED: Tamsulosin 0.4mg cap ORAL SCH (09:00)
[2019-12-27] MEDS ORDERED: hydroCHLOROthiazide 25mg cap ORAL SCH (09:00)
[2019-12-27] MEDS ORDERED: Aspirin EC 81mg tab ORAL SCH (09:00)
[2019-12-27] MEDS ORDERED: Magic Mouth Wash 60ml (Benadryl/Mylanta/Visc Lido) ORAL SCH (09:00)
--- NOTE | 2019-12-27 09:42 | NUR ---
NURSE NOTES: covid swab sent to lab.
[2019-12-27] MEDS: Propranolol 10mg tab ORAL SCH ×2 (10:30→16:30)
[2019-12-27] MEDS: Nortriptyline 25mg cap ORAL SCH ×2 (11:13→17:57)
[2019-12-27] MEDS: Topiramate 100mg tab ORAL SCH ×2 (11:14→17:57)
[2019-12-27] MEDS: Sertraline 50mg tab ORAL SCH (11:14)
[2019-12-27 11:15] VITALS: BP 100/56
--- NOTE | 2019-12-27 11:15 | History and Physical Report ---
DATE OF ADMISSION: 12/26/2019 CHIEF COMPLAINT/REASON FOR HOSPITALIZATION: The patient is admitted for abdominal discomfort, epigastric pain, possible pyelonephritis. HISTORY OF PRESENT ILLNESS: The patient is a 54-year-old man with a history of anxiety disorder and possible mood disorder, history of hypertension, and diabetes. He presents with epigastric pain, some nausea and vomiting for several days. The patient has been on medications for gastritis. There is no rectal bleeding. PAST SURGICAL HISTORY: Appendectomy and toe surgery. ALLERGIES: None known. MEDICATIONS: Per the patient, famotidine one tablet daily, sertraline 50 mg daily, aspirin 81 mg daily, lisinopril 40 mg daily which he takes as needed, propranolol 20 mg in the morning and 20 mg in the evening, nortriptyline 50 mg twice a day, Topamax 100 mg twice a day, gabapentin 300 mg at bedtime, and Seroquel 100 mg at bedtime. He stopped diabetes medicine recently. HABITS: He is a current nonsmoker and nondrinker. SYSTEM REVIEW: HEAD, EYES, EARS, NOSE, AND THROAT: Vision and hearing is good. ENDOCRINE: History of diabetes, now on no medicines. No history of hypothyroidism. PULMONARY: History of asthma, currently not wheezing. CARDIAC: No angina or CT. There is a history of hypertension. GASTROINTESTINAL: See history of present illness. GENITOURINARY: No dysuria, hematuria, or kidney stones. NEUROLOGIC: No CVA, syncope or seizures. PHYSICAL EXAMINATION: GENERAL: The patient is a well-developed man, alert in no acute distress. BMI 26.6. VITAL SIGNS: Temperature 98.2, pulse 61, respirations 16, blood pressure 102/63. HEAD, EYES, EARS, NOSE, AND THROAT: Sclerae are nonicteric. Ocular motions intact in all directions. Oral mucosa moist. NECK: No adenopathy or thyroid enlargement. LUNGS: Clear. HEART: Regular rhythm. No murmur. ABDOMEN: Soft without organomegaly or masses. EXTREMITIES: No edema, cyanosis, or clubbing. PERTINENT LABORATORY DATA: White count 10.5, hemoglobin 15.4. The admission electrolytes are normal, creatinine 0.9, glucose 160. Liver enzymes normal. Imaging showed bilateral perinephric fat stranding, nonspecific. It could be acute inflammation, but also could be chronic. He did have abnormal urinalysis with 10 to 15 white cells per high-powered field. IMPRESSION: 1. Epigastric pain, very likely due to gastritis or gastroesophageal reflux. 2. Abnormal urinalysis and concern for pyelonephritis, although his symptoms are not suggestive of that. 3. History of diabetes. 4. History of hypertension. 5. History of psychiatric disorder. PLAN: The patient is started on empiric antibiotics. We will watch him closely in view of his comorbidities. We will treat him for gastritis. Detailed orders have been given. Tip Angulo M.D. DR: SHLOMO JOB#: [id number] CC:
--- NOTE | 2019-12-27 14:25 | NUR ---
CASE MANAGEMENT:INITIAL REVIEW 54 YR OLD MALE FROM HOME CC;VOMITING SI;PYELONEPHRITIS 98.2 64 20 143/79 96% ON RA NA 134 UA+ PROTEIN, KETONES, UROBILINOGEN, LEUKOCYTE ESTERASE, RBC, WBC, BACTERIA, MUCUS URINE TOX ~ NEGATIVE RAPID COVID ~ NEGATIVE ABD/PELVIS CT ~ Limited assessment of the GI tract, due to lack of enteric contrast administration Bilateral perinephric fat stranding. This is a nonspecific finding, can be seen in acute inflammation but could also be chronic No definite acute abnormality otherwise Colonic diverticulosis. No evidence of diverticulitis CXR ~ NO ACUTE PROCESS IS;IVF NS BOLUS PROTONIX IV FENTANYL IC=V LEVAQUIN IV ZOFRAN IV X2 ADMITTED TO MED SURG MED SURG STATUS DCP;FROM HOME
[2019-12-27 16:00] VITALS: BP 85/45
--- NOTE | 2019-12-27 16:26 | NUR ---
INSURANCE CLINICALS/REVIEW/HP FAXED TO [facility] [phone]
[2019-12-27] MEDS ORDERED: Tubing IV Secondary IV ONE (16:34)
--- NOTE | 2019-12-27 19:23 | NUR ---
NURSE HAND-OFF: Important Events on Shift:IV hydration Patient Status: stable Diet: ccho medium Pending Orders: n/a Pending Results/Labs:n/a Pending MD notification:n/a Latest Vital Signs: Temperature 98.0 , Pulse 63 , B/P 85 /45 , Respiratory Rate 18 , O2 SAT 96 , Room Air, O2 Flow Rate . Vital Sign Comment: n/a Latest Murry Fall Score: 35 Fall Risk: Medium Risk Safety Measures: Call light Within Reach, Bed Alarm , Side Rails Side Rails x2, Bed position Low and Locked. Fall Precautions: Patient Fall Education Report given to Lidia WILSON.
--- NOTE | 2019-12-27 19:31 | NUR ---
NURSE NOTES: Received report & pt from KATIE Pritchard. Pt in bed, a&ox4, in room air. No s/s of acute distress & no c/o pain at this time. IV site intact with IVF running as ordered. Plan of care discussed.
[2019-12-27 20:00] VITALS: BP 102/57
[2019-12-27] MEDS ORDERED: Atorvastatin 20mg tab ORAL SCH (21:00)
[2019-12-28 04:56] VITALS: BP 89/58
[2019-12-28] MEDS: NovoLOG Insulin Flexpen SUBQ SCH ×3 (05:43→16:30)
--- NOTE | 2019-12-28 06:30 | NUR ---
NURSE HAND-OFF: Important Events on Shift:IV hydration Patient Status: stable Diet: ccho (m) Pending Orders: none Pending Results/Labs:none Pending MD notification:none Latest Vital Signs: Temperature 97.5 , Pulse 68 , B/P 89 /58 , Respiratory Rate 16 , O2 SAT 97 , Room Air, O2 Flow Rate . Vital Sign Comment: none Latest Murry Fall Score: 35 Fall Risk: Medium Risk Safety Measures: Call light Within Reach, Bed Alarm , Side Rails Side Rails x2, Bed position Low and Locked. Fall Precautions: Patient Fall Education Report given to . Addendum: 12/28/19 at 0739 by Lidia Green RN Report given to KATIE Osorio.
[2019-12-28 06:53] LABS: BASOPHILS % (AUTO) 0.7 % (0.0-2.0); EOSINOPHILS % (AUTO) 0.8 % (0.0-3.0); HEMATOCRIT 39.2 % (42.0-52.0); HEMOGLOBIN 13.1 G/DL (14.2-18.0); LYMPHOCYTES % (AUTO) 41.6 % (20.0-45.0); MEAN CORPUSCULAR VOLUME 95 FL (80-99); MONOCYTES % (AUTO) 7.7 % (1.0-10.0); NEUTROPHILS % (AUTO) 49.2 % (45.0-75.0); PLATELET COUNT 144 K/UL (150-450); RED BLOOD COUNT 4.11 M/UL (4.70-6.10); RED CELL DISTRIBUTION WIDTH 12.7 % (11.6-14.8)
[2019-12-28 07:16] LABS: ANION GAP 7 mmol/L (5-15); BLOOD UREA NITROGEN 11 mg/dL (7-18); CALCIUM 8.5 MG/DL (8.5-10.1); CARBON DIOXIDE 26 MMOL/L (21-32); CHLORIDE 106 MMOL/L (98-107); CREATININE 1.1 MG/DL (0.55-1.30); POTASSIUM 3.8 MMOL/L (3.5-5.1); SODIUM 139 MMOL/L (136-145)
--- NOTE | 2019-12-28 07:35 | NUR ---
NURSE NOTES: Report received from Lidia RN, rounds made. Patient resting in semi-fowlers position in bed. AOx4 calm, pleasant. Respirations even/unlabored on RA. Denies SOB, pain, NV. IV NS +20 KCL at 50 ml/hr to RFA, site asymptomatic. Call light in reach, bed in lowest position, will continue to monitor.
[2019-12-28 08:00] VITALS: BP 97/58
[2019-12-28] MEDS: Propranolol 10mg tab ORAL SCH ×2 (08:36→16:43)
[2019-12-28] MEDS: Lisinopril 20mg tab ORAL SCH (08:36)
[2019-12-28] MEDS: Topiramate 100mg tab ORAL SCH (08:44)
[2019-12-28] MEDS: Sertraline 50mg tab ORAL SCH (08:44)
[2019-12-28] MEDS: Cefepime HCl 1 GM in D5W 55 ML IVPB SCH (08:44)
[2019-12-28] MEDS: Nortriptyline 25mg cap ORAL SCH (08:45)
[2019-12-28] MEDS: Heparin 5000 units/ml inj SUBQ SCH (09:00)
--- NOTE | 2019-12-28 11:00 | NUR ---
NURSE NOTES: Dr. Angulo notified of platelets 144, okay to hold heparin, patient to be discharged today
[2019-12-28 11:24] VITALS: BP 125/77
--- NOTE | 2019-12-28 11:33 | NUR ---
NURSE NOTES: Bedside blood sugar 76, patient AOx4, denies dizziness, lightheadedness, juice provided, tolerated well.
--- NOTE | 2019-12-28 12:30 | Discharge Summary ---
DATE OF ADMISSION: 12/26/2019 DATE OF DISCHARGE: 12/28/2019 PERTINENT HISTORY: The patient is a 54-year-old man with a history of anxiety and mood disorder, hypertension, diabetes, presented with epigastric pain, nausea and vomiting. PERTINENT PHYSICAL FINDINGS: LUNGS: Clear. HEART: Regular rhythm. No murmur. ABDOMEN: Soft without organomegaly or tenderness. EXTREMITIES: No edema. COURSE IN THE HOSPITAL: The patient had an urinalysis with 10 to 15 white cells and imaging showed bilateral perinephric fat stranding, nonspecific. The patient had no dysuria and he was given IV antibiotics empirically. He had no fever or chills and notes that the urine nitrite was negative and urine leukocyte esterase 1+ and urine culture grew less than 10,000 coag-negative Staph and this is probably a contaminated specimen after culture came back. He had no further epigastric pain, nausea, vomiting, or dysuria and he was discharged home in improved condition. FINAL DIAGNOSES: 1. Epigastric pain likely gastritis. 2. Abnormal urinalysis, see above. 3. History of hypertension. Blood pressure low normal and antihypertensive medications discontinued. 4. History of anxiety disorder. DISCHARGE DISPOSITION: Home on a regular diet and his usual medicines, which he states are famotidine one tablet daily, uncertain dose, sertraline 50 mg daily, aspirin 81 mg daily. Lisinopril stopped. Propranolol 20 mg in the morning and mg in the evening, nortriptyline 50 mg twice a day, Topamax 100 mg twice a day, gabapentin 300 mg at bedtime and Seroquel 100 mg at bedtime. Follow up with his primary physician. Tip Angulo M.D. DR: KWADWO JOB#: [id number] CC:
[2019-12-28 16:00] VITALS: BP 116/63
[2019-12-28 16:43] VITALS: BP 116/63
[2019-12-28] MEDS ORDERED: SERTRALINE HCL25 MG ORAL (17:20)
[2019-12-28] MEDS ORDERED: PAMELOR25 MG ORAL (17:21)
[2019-12-28] MEDS ORDERED: TOPIRAMATE100 MG ORAL (17:23)
[2019-12-28] MEDS ORDERED: GABAPENTIN100 MG ORAL (17:24)
[2019-12-28] MEDS ORDERED: SEROQUEL50 MG ORAL (17:27)
--- NOTE | 2019-12-28 17:40 | NUR ---
NURSE NOTES: Discharge instructions reviewed with patient, verbalized understanding. RFA IV discontinued, no active bleeding. ID bracelet removed. All belongings, discharge instructions given to patient. Ambulated down to lobby with RN, in stable condition. Discharged home at 1740.
== END 2019-12-28 17:54 | disposition home or self-care (01) | DRG 241 ==
LOC: EMR 15:35 → 3E 18:15 → EDBEDREQ 21:18 → 3E 21:40
DX: K29.70 Gastritis, unspecified, without bleeding (principal); F41.9 Anxiety disorder, unspecified; E11.9 Type 2 diabetes mellitus without complications; I10 Essential (primary) hypertension
CPT/HCPCS: 36415; 71045; 74176; 80048; 80053; 80307; 81003; 82962; 83605; 83690; 83735; 84484; 85025; 85610; 85730; 87040; 87086; 93005; 96361; 96365; 96375; 96376; 99285; J1815; J2405; J7030; U0002

== ENCOUNTER 2020-02-04 04:47 | Emergency (ER) | payer OTHER ==
[~2020-02-04] VITALS: Ht 170.2 cm; Wt 77.1 kg
[~2020-02-04 04:47] MED LIST changes: +GABAPENTIN100 MG ORAL; +PAMELOR25 MG ORAL; +SEROQUEL50 MG ORAL; +SERTRALINE HCL25 MG ORAL; +TOPIRAMATE100 MG ORAL
[2020-02-04] MEDS ORDERED: Lidocaine 2% Visc 15ml soln ORAL ONE (05:00)
[2020-02-04] MEDS ORDERED: Dicyclomine HCl 10mg/5ml oral soln ORAL ONE (05:00)
[2020-02-04] MEDS ORDERED: Mylanta II UD 30ml ORAL ONE (05:00)
--- NOTE | 2020-02-04 05:00 | NUR ---
ED Nurse Note: pt walked to the ed complaning of N/V and dehydarion x 2hrs. vitals are stable and no sob. no fever and chills. pt is A&Ox4 and verbal. pt avoid eye contact and he is anxious.
--- NOTE | 2020-02-04 05:12 | Emergency Room Report ---
History of Present Illness General Chief Complaint: Generalized Weakness Source: Patient Present Illness HPI 54-year-old male with a history of psychiatric disorder, anxiety, hypertension here with vomiting. Patient says that he vomited twice earlier tonight 2 times nonbilious nonbloody. Says that this happened several hours after he ate a bowl of soup. Nausea only started a few hours prior to coming to the emergency department. Has not had any bowel movements yet tonight. No fevers, chills, chest pain, palpitations, shortness of breath, diaphoresis, back pain, abdominal pain, diarrhea, dysuria. Allergies: Coded Allergies: No Known Allergies (Unverified , 10/07/12) COVID-19 Screening Contact w/high risk pt: No Experienced COVID-19 symptoms?: No COVID-19 Testing performed FIRER LOW PRESSURE: No Nursing Documentation-[facility] Past Medical History: No History, Except For Hx Cardiac Problems: Yes Hx Hypertension: Yes Hx Asthma: Yes Hx Diabetes: Yes Hx Cancer: No Hx Gastrointestinal Problems: No History Of Psychiatric Problem: Yes - anxiety, depression Hx Neurological Problems: No Review of Systems All Other Systems: negative except mentioned in HPI Physical Exam Vital Signs Date Time Temp Pulse Resp B/P (MAP) Pulse Ox O2 Delivery O2 Flow Rate FiO2 02/04/20 04:47 98.1 117 22 160/92 (114) 97 Room Air Sp02 EP Interpretation: reviewed, normal General Appearance: no apparent distress, alert, non-toxic Head: normocephalic, atraumatic Eyes: bilateral eye normal inspection, bilateral eye PERRL ENT: hearing grossly normal, normal pharynx, no angioedema, normal voice Neck: full range of motion, supple/symm/no masses Respiratory: chest non-tender, lungs clear, normal breath sounds, speaking full sentences Cardiovascular #1: regular rate, rhythm, no edema Cardiovascular #2: 2+ carotid (R), 2+ carotid (L), 2+ radial (R), 2+ radial (L), 2+ dorsalis pedis (R), 2+ dorsalis pedis (L) Gastrointestinal: normal bowel sounds, non tender, soft, non-distended, no guarding, no rebound Rectal: deferred Genitourinary: normal inspection, no CVA tenderness Musculoskeletal: back normal, normal range of motion, gait/station normal, non- tender Neurologic: alert, motor strength/tone normal, oriented x3, sensory intact, responsive, speech normal Psychiatric: judgement/insight normal, memory normal, mood/affect normal, no suicidal/homicidal ideation, other - Avoids eye contact and has pressured speech, but is calm and cooperative and answers questions appropriately Lymphatic: no adenopathy Medical Decision Making Diagnostic Impression: Primary Impression: Nausea & vomiting ER Course EKG: NSR, no ischemia, intervals WNL. No ectopy. Rate 92 bpm Rhythm strip: patient monitored for arrhythmias - no malignant dysrhythmias, runs of PVCs, nor pauses noted Patient signed out to oncoming physician pending labs. Last Vital Signs Date Time Temp Pulse Resp B/P (MAP) Pulse Ox O2 Delivery O2 Flow Rate FiO2 02/04/20 04:47 98.1 117 22 160/92 (114) 97 Room Air Scripts Ondansetron Odt* (ZOFRAN ODT*) 4 Mg Tab.rapdis 4 MG BC EVERY 6 HOURS PRN for Nausea & Vomiting, #10 TAB 0 Refills Prov: Lourdes Maria D.O. 02/04/20 Famotidine* (Pepcid 20mg tablet*) 20 Mg Tablet 20 MG ORAL DAILY for Gerd for 30 Days, #30 TAB 0 Refills Prov: Lourdes Maria D.O. 02/04/20 Pantoprazole* (PROTONIX*) 40 Mg Tablet.dr 40 MG ORAL DAILY for 30 Days, #30 TAB Prov: Lourdes Maria D.O. 02/04/20 Referrals: [facility] (PCP) Jesus Alberto Santana M.D. Feb 04, 2020 05:12
[2020-02-04 05:16] VITALS: BP 160/92
[2020-02-04 05:31] LABS: BASOPHILS % (AUTO) 0.7 % (0.0-2.0); EOSINOPHILS % (AUTO) 0.4 % (0.0-3.0); HEMATOCRIT 42.6 % (42.0-52.0); HEMOGLOBIN 15.7 G/DL (14.2-18.0); LYMPHOCYTES % (AUTO) 20.4 % (20.0-45.0); MEAN CORPUSCULAR VOLUME 86 FL (80-99); MONOCYTES % (AUTO) 8.9 % (1.0-10.0); NEUTROPHILS % (AUTO) 69.6 % (45.0-75.0); PLATELET COUNT 192 K/UL (150-450); RED BLOOD COUNT 4.96 M/UL (4.70-6.10); RED CELL DISTRIBUTION WIDTH 12.4 % (11.6-14.8); WHITE BLOOD COUNT 10.1 K/UL (4.8-10.8)
[2020-02-04 05:43] LABS: ANION GAP 10 mmol/L (5-15); BLOOD UREA NITROGEN 7 mg/dL (7-18); CALCIUM 8.9 MG/DL (8.5-10.1); CARBON DIOXIDE 25 MMOL/L (21-32); CHLORIDE 98 MMOL/L (98-107); CREATININE 0.9 MG/DL (0.55-1.30); POTASSIUM 3.3 MMOL/L (3.5-5.1); SODIUM 133 MMOL/L (136-145)
[2020-02-04 05:47] LABS: ALANINE AMINOTRANSFERASE 29 U/L (12-78); ALBUMIN 4.3 G/DL (3.4-5.0); ALBUMIN/GLOBULIN RATIO 1.2 (1.0-2.7); ALKALINE PHOSPHATASE 112 U/L (46-116); ASPARTATE AMINO TRANSFERASE 17 U/L (15-37); BILIRUBIN,TOTAL 0.5 MG/DL (0.2-1.0)
[2020-02-04] MEDS ORDERED: FAMOTIDINE20 MG ORAL (06:35)
[2020-02-04] MEDS ORDERED: PROTONIX40 MG ORAL (06:35)
--- NOTE | 2020-02-04 06:35 | Emergency Room Report ---
Physical Exam Vital Signs Date Time Temp Pulse Resp B/P (MAP) Pulse Ox O2 Delivery O2 Flow Rate FiO2 02/04/20 04:47 98.1 117 22 160/92 (114) 97 Room Air Sp02 EP Interpretation: reviewed, normal Medical Decision Making Diagnostic Impression: Primary Impression: Nausea & vomiting Additional Impressions: Gastritis due to nonsteroidal anti-inflammatory drug (NSAID) Acid reflux ER Course Care was signed out to me by Dr. Santana Performed chart review. Patient was recently admitted to the hospital in December 2019 with diagnosis of pyelonephritis and NSAID induced gastritis. He was discharged without complications. He has had several previous visits for similar complaint. Briefly, this patient is a 54-year-old male with a history of gastritis, pyelonephritis, asthma, hypertension, anxiety, depression who presents after vomiting x2 prior to arrival, after eating a bowl of soup. No chest pain or anginal equivalent Initial vital signs were notable for low-grade tachycardia. He was otherwise afebrile. Abdominal examination is benign. No guarding or rebound. Negative Danielson sign. No CVA tenderness to palpation. Doubt surgical abdomen. Patient had a recent CT in December 2019 which showed diverticulosis without diverticulitis and chronic perinephric stranding. Labs today have been unremarkable. Urinalysis is unremarkable. EKG is nonischemic. Although I considered abdominal imaging, given the patients benign exam, the patients presentation does not warrant urgent / immediate imaging. At this time, the risk of CT scan and associated radiation likely outweigh the benefits, and thus CT imaging was deferred. The patients symptoms significantly improved, exam upon discharge revealed a benign abdomen without any surgical or peritoneal signs , and tolerating oral fluids. The patient appears stable for discharge with abdominal_recheck_in_24_hours, and understand to return to the ED immediately if symptoms change or worsen. EKG Diagnostic Results PA Scribe Text 12-lead EKG (interpreted by me) Time: 515 Indication: Rhythm analysis Tracing visualized and Interpreted by me. Rhythm: Normal sinus rhythm Rate: 92 bpm QTc: 450 Morphology: No_significant_ST_elevations_or_depressions, No STEMI Impression: Normal_sinus_rhythm_without_significant_abnormality. LVH Rhythm Strip Diag. Results Rhythm Strip Time: 06:33 EP Interpretation: yes Rate: 0600 Rhythm: NSR, no PVC's, no ectopy Reevaluation Time: 06:33 Last Vital Signs Date Time Temp Pulse Resp B/P (MAP) Pulse Ox O2 Delivery O2 Flow Rate FiO2 02/04/20 05:16 98.1 22 160/92 97 Room Air 02/04/20 05:16 117 Status: improved Disposition: HOME, SELF-CARE Admit Decision Time: 07:00 Condition: Stable Scripts Ondansetron Odt* (ZOFRAN ODT*) 4 Mg Tab.rapdis 4 MG BC EVERY 6 HOURS PRN for Nausea & Vomiting, #10 TAB 0 Refills Prov: Lourdes Maria D.O. 02/04/20 Famotidine* (Pepcid 20mg tablet*) 20 Mg Tablet 20 MG ORAL DAILY for Gerd for 30 Days, #30 TAB 0 Refills Prov: Lourdes Maria D.O. 02/04/20 Pantoprazole* (PROTONIX*) 40 Mg Tablet.dr 40 MG ORAL DAILY for 30 Days, #30 TAB Prov: Lourdes Maria D.O. 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 Do not take motrin or advil as it will irritate your stomach Follow-up with your doctor sooner if your condition requires a more timely clinical reevaluation. Return to the emergency department immediately if you feel that your condition is worsening or if you have any new or concerning symptoms. Review your discharge instructions and take any prescriptions given as instructed. [facility] PROVIDES FREE OR LOW-COST HEALTH SERVICES TO PEOPLE WHO CAN SHOW PROOF THAT THEY LIVE IN [facility]. TO FIND MORE CLINICS PARTNERED WITH THE [facility], [facility] TO PROVIDE SERVICE, PLEASE CALL . Lourdes Maria D.O. Feb 04, 2020 06:35
[2020-02-04] MEDS ORDERED: ONDANSETRON ODT4 MG BC (06:42)
[2020-02-04 06:59] LABS: APPEARANCE,URINE CLEAR; BILIRUBIN, URINE NEGATIVE (NEGATIVE); GLUCOSE, URINE (UA) NEGATIVE (NEGATIVE); KETONES,URINE NEGATIVE (NEGATIVE); LEUKOCYTE ESTERASE ,URINE NEGATIVE (NEGATIVE); NITRITE,URINE NEGATIVE (NEGATIVE); PH,URINE 6 (4.5-8.0); PROTEIN,URINE NEGATIVE (NEGATIVE); UROBILINOGEN,URINE 1 MG/DL (0.0-1.0)
[2020-02-04 07:14] LABS: COLOR,URINE PALE YELLOW
--- NOTE | 2020-02-04 07:19 | NUR ---
HAND-OFF: Report given to KATIE Gary.
[2020-02-04 07:26] VITALS: BP 152/90
== END 2020-02-04 07:26 | disposition home or self-care (01) ==
LOC: EMR 05:07
DX: R11.2 Nausea with vomiting, unspecified (principal); K29.70 Gastritis, unspecified, without bleeding; T39.395A Adverse effect of other nonsteroidal anti-inflammatory drugs [NSAID], initial encounter; Y92.9 Unspecified place or not applicable; K21.9 Gastro-esophageal reflux disease without esophagitis; I10 Essential (primary) hypertension; E11.9 Type 2 diabetes mellitus without complications
CPT/HCPCS: 36415; 80053; 81003; 83690; 85025; 93005; 96361; 96374; J2405; J7030; Z7502; 99284; J8499